=== PATIENT | male | born 1955 | race Caucasian/White ===

== ENCOUNTER → 2018-04-11 | Outpatient (CLI) | payer OTHER ==
--- NOTE | 2018-04-11 10:11 | CTL ---
EXAMINATION TYPE: CT Low Dose Lung DATE OF EXAM ORDERED: 04/11/2018 HISTORY: Personal history of tobacco use. Lung cancer screening CT DLP: [address] CTDI: 1.91 mGy Automated exposure control for dose reduction was used. SCREENING VISIT: Initial study COMPARISON: CT chest abdomen and pelvis March 21, 2013 TECHNIQUE: Low dose computed tomography scan was performed through the chest at 1 mm thick sections a nd reconstructed images in the coronal plane at [address] DIAGNOSTIC QUALITY: Satisfactory FINDINGS: LUNG NODULES: Present, detailed below: A 4 x 3 mm posterior right lower lobe nodule axial image [address] axial image 37 A 4 x 3 mm posterior superior left lower lobe nodule axial image 154 not clearly identified on prior. A 3 mm superior posterior right lower lobe nodule axial image 102. Additional scattered small nodules all measuring under 4 mm in size, for reference posterior lateral right upper lobe nodule axial image 59. LUNGS: COPD: Severity: Mild Fibrosis: Severity: Mild linear scarring lingula axial image 212 Lymph nodes: None Other findings: None BILATERAL PLEURAL SPACE: Effusion: None Calcification: None Thickening: None Pneumothorax: None HEART: Heart Size: Normal Coronary calcification: Mild to moderate Pericardial effusion: None OTHER FINDINGS: Upper abdomen: None Bony thorax: Mild to moderate multilevel spurring Supraclavicular region: Heterogeneous slightly more prominent lower pole left thyroid axial image 13 can't exclude new nodule at this level. Other: No additional suspicious finding identified. IMPRESSION: Scattered small nodules all measuring under 4 mm in size. FOLLOW UP CT CHEST RECOMMENDATION: Annual low-dose lung screening CT CT LUNG RAD: Lung-Rad 2S- Benign Appearance or Behavior Advised thyroid ultrasound to assess for possible new lower pole left thyroid nodule.
== END | disposition home or self-care (01) ==
LOC: RADCTMAIN 07:08
PROVIDERS: ATTEND Family Medicine
DX: Z12.2 Encounter for screening for malignant neoplasm of respiratory organs (principal); R91.8 Other nonspecific abnormal finding of lung field; Z87.891 Personal history of nicotine dependence

== ENCOUNTER 2018-04-18 07:13 | Day surgery (SDC) | payer OTHER ==
[2018-04-16 14:05] VITALS: BMI 22.8
[~2018-04-18 07:13] MED LIST: LACTATED RINGERS 1,000 ML IV SCH; LIDOCAINE 1% 20 ML VIAL (10MG/ML) FOR IV START INTRADERMA PRN
[2018-04-18 07:28] VITALS: RESP 18; TEMP 97.8
[2018-04-18] MEDS ORDERED: LACTATED RINGERS 1,000 ML IV ONE (07:35)
[2018-04-18 07:36] LABS: Glucose,Whole Blood 117 mg/dL (75-99)
[2018-04-18] MEDS ORDERED: PROPOFOL 10 MG/ML 20 ML VIAL IV ONE (07:59)
--- NOTE | 2018-04-18 08:23 | P.PCN ---
Date of Procedure: 04/18/18 Procedure(s) Performed: Brief history: Patient is a pleasant 62-year-old white male, scheduled for an elective upper endoscopy as well as colonoscopy as a part of evaluation of intermittent episodes of nausea vomiting and prior history of colon polyps. Procedure performed: Esophagogastroduodenoscopy with biopsy Colonoscopy Preoperative diagnosis: Intermittent episodes of nausea/vomiting of several months duration History of colon polyps Anesthesia: MAC Procedure: After informed consent was obtained from the patient was brought into the endoscopy unit and IV sedation was administered by anesthesia under continuous monitoring. Initially upper endoscopy was done. The Olympus GF 160 video endoscope was inserted inserted into the mouth and esophagus intubated without any difficulty and was gradually advanced into the stomach and duodenum and carefully examined. The bulb and second part of the duodenum appeared normal. Biopsy is were done from the duodenum to rule out celiac disease. The scope was then withdrawn into the stomach adequately insufflated with air and upon careful examination the antrum had minimal gastritis and biopsies were done from this area. The body, cardia and fundus appeared normal. The scope was then withdrawn into the esophagus. The GE junction was located at 40 cm to the incisors. It appeared regular with no erythema erosions or ulcerations. Rest of the esophagus appeared normal. Patient tolerated the procedure well. At this time the patient continued to remain sedation. Initial digital rectal examination was normal. Olympus CF 160 video colonoscope was then inserted into the rectum and gradually advanced to the cecum without any difficulty. Careful examination was performed as the scope was gradually being withdrawn. The prep was excellent. The cecum, ascending colon, transverse colon, descending colon, sigmoid colon and rectum appeared normal. scattered sigmoid diverticulosis. Retroflexion was performed in the rectum and no lesions were noted. Patient tolerated the procedure well. Impression: 1. Upper endoscopy revealed mild antral gastritis but no evidence of esophagitis or peptic ulcer disease wanda value] 2. Colonoscopy revealed scattered sigmoid diverticulosis but no evidence of colitis or colorectal neoplasia Recommendations: Findings of this examination were discussed with the patient as well as his family. He was advised to follow with the biopsy results. He can have a repeat surveillance colonoscopy in 5 years from now because of the prior history of colon polyps.
[2018-04-18 08:37] LABS: Glucose,Whole Blood 108 mg/dL (75-99)
[2018-04-18 09:25] VITALS: BP 131/76; PULSE 74
== END 2018-04-18 09:20 | disposition home or self-care (01) ==
LOC: ORWHC2ENDO 07:13
PROVIDERS: ATTEND Internal Medicine Gastroenterology
DX: K29.50 Unspecified chronic gastritis without bleeding (principal); K57.30 Diverticulosis of large intestine without perforation or abscess without bleeding; K21.0 Gastro-esophageal reflux disease with esophagitis; I10 Essential (primary) hypertension; E78.5 Hyperlipidemia, unspecified; J44.9 Chronic obstructive pulmonary disease, unspecified; E11.9 Type 2 diabetes mellitus without complications; F39 Unspecified mood [affective] disorder; Z86.010 Personal history of colon polyps; Z79.84 Long term (current) use of oral hypoglycemic drugs; Z79.51 Long term (current) use of inhaled steroids; Z79.899 Other long term (current) drug therapy
CPT/HCPCS: 88305; 45378; 43239; J2704

== ENCOUNTER → 2018-06-13 | Outpatient (CLI) | payer OTHER ==
--- NOTE | 2018-06-14 08:38 | US ---
EXAMINATION TYPE: US thyroid st tissue head/neck DATE OF EXAM: 06/13/2018 COMPARISON: CT dated 04/11/2018 CLINICAL HISTORY: E04.[address] GLAND SIZE: Right Lobe: 4.7 x 2.3 x 2.0 cm Overall Parenchyma: homogenous Left Lobe: 4.6 x 2.6 x 2.6 cm Overall Parenchyma: heterogeneous Isthmus Thickness: 0.4 cm NODULES RIGHT: # of nodules measured on right: 1 1. 0.4 X 0.3 x 0.3 cm hypoechoic solid nodule at the upper pole with well-defined margins; This nod ule is wider than tall and shows intranodular vascularity. Prior size: No prior LEFT: # of nodules measured on left: 1 1. 2.7 X 2.3 x 2.3 cm mixed nodule at the mid pole with well-defined margins; This nodule is wider than tall and shows intranodular vascularity. Prior size: Nodule seen on CT ISTHMUS: # of nodules measured in the isthmus: 0 Bilateral neck scanned, no evidence of lymphadenopathy. Nodules bilaterally, sub-centimeter on right, larger on left. IMPRESSION: 1. Complex partially cystic and partially solid left thyroid nodule measuring up to 2.7 cm for which fine-needle aspiration of the more solid components is recommended. 2. Subcentimeter (4 mm) right thyroid nodules incidentally seen.
== END | disposition home or self-care (01) ==
LOC: RADUSWWP 16:47
PROVIDERS: ATTEND Family Medicine
DX: E04.2 Nontoxic multinodular goiter (principal); Z88.8 Allergy status to other drugs, medicaments and biological substances
CPT/HCPCS: 76536

== ENCOUNTER → 2018-07-25 | Outpatient (CLI) | payer OTHER ==
--- NOTE | 2018-07-26 10:10 | NM ---
EXAMINATION TYPE: NM thyroid image w uptake DATE OF EXAM: 07/26/2018 COMPARISON: 06/13/2018 HISTORY: Abnormal ultrasound TECHNIQUE: Thyroid iodine uptake is calculated and images performed after the oral administration of 316 uCi 1-123 Capsule. FINDINGS: There is a large cold defect involving the mid and upper pole left thyroid. The 4 hour iod ine uptake is calculated at 2.9% (normal range 8-14%). The 24-hour iodine uptake is calculated at 3.0 % (normal range 15-35%). IMPRESSION: 1. Findings compatible with hypothyroidism. 2. Abnormal uptake involving the left lobe of the thyroid corresponds to the ultrasound thyroid nodul e compatible with a cold nodule. The tiny nodule seen within the right lobe is too small to correlate by thyroid imaging.
== END | disposition home or self-care (01) ==
LOC: RADNMMAIN 09:12
PROVIDERS: ATTEND Family Medicine
DX: E04.1 Nontoxic single thyroid nodule (principal); E03.9 Hypothyroidism, unspecified
CPT/HCPCS: 78014; A9516

== ENCOUNTER 2018-08-09 09:51 | Emergency (ER) | payer OTHER ==
[2018-08-09] MEDS ORDERED: SODIUM CHLORIDE 0.9% 500 ML IV STA (10:25)
--- NOTE | 2018-08-09 10:29 | ED ---
General Adult HPI - General Chief complaint: Neuro Symptoms/Deficit Stated complaint: POSS TIA Source: patient, family Mode of arrival: ambulatory Limitations: no limitations - History of Present Illness Initial comments: Dictation was produced using [employer] dictation software. please excuse any grammatical, word or spelling errors. Chief Complaint: 62-year-old male past medical history of COPD, diabetes, GI bleed, chronic nausea vomiting presents with word finding difficulty for 3 weeks. History of Present Illness: Patient is 62-year-old male presents with worsening word finding difficulty. Patient has been worked up outpatient. He had an x-ray performed approximately 3 weeks ago. There was incidental findings on x-ray that showed nodules on the thyroid. Patient underwent thyroid testing by primary care physician. Patient had normal thyroid labs outpatient. He was started on Synthroid for possible hypothyroidism. Patient was evaluated by the cnc operator yesterday and he was told that his thyroid labs are normal. He was scheduled for biopsy. Over the past 3 weeks patient has been word finding difficulty that has been worsening acutely. Patient denies any history of cancer. Patient is comfortable by who states that patient has been stuttering having difficulty finding words. Patient has denied any other neuro deficits. He denies any vision loss. The ROS documented in this emergency department record has been reviewed and confirmed by me. Those systems with pertinent positive or negative responses have been documented in the HPI. All other systems are other negative and/or noncontributory. - Related Data Home Medications Medication Instructions Recorded Confirmed Albuterol Inhaler [Ventolin 1 - 2 puff INHALATION RT-Q4H PRN 07/28/15 08/09/18 Inhaler] Ezetimibe [Zetia] 10 mg PO DAILY 07/28/15 08/09/18 Fluticasone/Salmeterol [Advair 1 puff INHALATION RT-BID 07/28/15 08/09/18 500-50 Diskus] Ibuprofen [Motrin] 800 mg PO Q8HR PRN 07/28/15 08/09/18 LORazepam [Ativan] 1 tab PO BID PRN 07/28/15 08/09/18 Lisinopril [Zestril] 5 mg PO DAILY 07/28/15 08/09/18 Omeprazole [PriLOSEC] 20 mg PO BID 07/28/15 08/09/18 Theophylline 24 Hour [Kelechi-24] 300 mg PO BID 07/28/15 08/09/18 Tiotropium Arverne [Spiriva] 1 puff INHALATION RT-DAILY 07/28/15 08/09/18 metFORMIN HCL [Glucophage] 500 mg PO DAILY 07/28/15 08/09/18 Albuterol Nebulized [Ventolin 2.5 mg INHALATION RT-Q6H PRN 04/16/18 08/09/18 Nebulized] Cyclobenzaprine [Flexeril] 5 - 10 mg PO HS PRN 04/16/18 08/09/18 Empagliflozin [Jardiance] 25 mg PO DAILY 04/16/18 08/09/18 Gabapentin [Neurontin] 300 mg PO TID 04/16/18 08/09/18 Tamsulosin [Flomax] 0.4 mg PO DAILY 04/16/18 08/09/18 sitaGLIPtin PHOSPHATE [Januvia] 100 mg PO DAILY 04/16/18 08/09/18 Levothyroxine Sodium [Synthroid] 50 mcg PO DAILY 08/09/18 08/09/18 Eqkl-Ngca-Lvs 6.25-5-10Mg/5Ml 5 - 10 ml PO Q6H PRN 08/09/18 08/09/18 [Phenergan VC with Codeine] Allergies Allergy/AdvReac Type Severity Reaction Status Date / Time Gtpvcvs-Nun-Yky Reductase AdvReac JOINT PAIN Verified 08/09/18 10:58 Inhibitor GAIN LAUNDRY PODS Allergy Rash/Hives Uncoded 04/16/18 13:32 Review of Systems ROS Statement: Those systems with pertinent positive or pertinent negative responses have been documented in the HPI. ROS Other: All systems not noted in ROS Statement are negative. Past Medical History Past Medical History: COPD, Diabetes Mellitus, GERD/Reflux, GI Bleed, Hyperlipidemia, Hypertension, Musculoskeletal Disorder, Osteoarthritis (OA) Additional Past Medical History / Comment(s): RT SHOULDER ARTHRITIS & SCIATICA @ TIMES. NT IN TOES OCC. STATES BRUISES EASILY. HX THROWING UP BLOOD, PT HAD BEEN DRINKING ALCOHOL. History of Any Multi-Drug Resistant Organisms: None Reported Additional Past Surgical History / Comment(s): EGD & COLONOSCOPY. DENTAL PROC Past Anesthesia/Blood Transfusion Reactions: Previous Problems w/ Anesthesia Additional Past Anesthesia/Blood Transfusion Reaction / Comment(s): "AWOKE THRASHING, PANICKY." Past Psychological History: Anxiety Smoking Status: Current every day smoker Past Alcohol Use History: None Reported Past Drug Use History: None Reported - Past Family History Sister(s) Family Medical History: Cancer Mother Family Medical History: Cancer, Congestive Heart Failure (CHF), COPD, Diabetes Mellitus Additional Family Medical History / Comment(s): BREAST CA- @ AGE 82-CHF Father Family Medical History: Dementia Additional Family Medical History / Comment(s): HAD A HEART CATH WITH STENT General Exam - General Exam Comments Initial Comments: PHYSICAL EXAM: General Impression: Alert and oriented x3, not in acute distress HEENT: Normocephalic atraumatic, extra-ocular movements intact, pupils equal and reactive to light bilaterally, mucous membranes moist. Cardiovascular: Heart regular rate and rhythm, S1&S2 audible, no murmurs, rubs or gallops Chest: Lungs clear to auscultation bilaterally, no rhonchi, no wheeze, no rales Abdomen: Bowel sounds present, abdomen soft, non-tender, non-distended, no organomegaly Musculoskeletal: Pulses present and equal in all extremities, no peripheral edema Motor: Power 5/5 bilaterally, no focal deficits noted Neurological: CN II-XII grossly intact, no focal motor or sensory deficits noted Skin: Intact with no visualized rashes Psych: Normal affect and mood Limitations: no limitations Course Vital Signs 08/09/18 09:53 Temperature 97.8 F Pulse Rate 75 Respiratory 20 Rate Blood Pressure 154/82 O2 Sat by Pulse 99 Oximetry Medical Decision Making - Medical Decision Making ED course: 72-year-old male with word finding difficulties 3 weeks. Patient has no other neuro deficits. Vital signs upon arrival are within acceptable limits. Patient has recent thyroid studies performed for cystic thyroid nodules. Patient is able to read and understands however cannot find the words to express what is reading. Patient has stuttering speech which significant other reports is abnormal over the past 3 weeks. She is not a candidate for TPA at this time given that his symptoms have been ongoing for 3 weeks.Laboratory evaluation is obtained. CBC unremarkable, coag panel unremarkable. Metabolic panel shows mild Acidosis. Renal markers are within normal limits. Glucose is 100. Abdominal labs are unremarkable. Urinalysis shows 2+ ketones and 4+ glucose. Given clinical presentation there is strong suspicion of intracranial process of the left hemisphere. Computed tomography scan of the brain was obtained showing large area of vasogenic edema involving the left temporal parietal lobes with brown 4.1 cm mass. There is mild 5 mm rightward midline shift. Findings were discussed in detail with patient and patient's fiance. They requested to be transferred to [facility] for further intervention. Chest x-ray shows no acute processes. Patient to be transferred to [facility]. stable at this time. Repeat neural evaluation does not show any changes. EKG interpretation: Ventricular rate 68 on a normal sinus rhythm,. Interval 140 , QRS 104, QTC 425. No [place] prolongation, no QTC prolongation, no ST or T-wave changes noted. Overall, this EKG is unremarkable - Lab Data Result diagrams: 08/09/18 10:30 08/09/18 10:30 Lab Results 08/09/18 08/09/18 08/09/18 Range/Units 10:30 10:30 10:30 WBC 8.3 (3.8-10.6) k/uL RBC 5.76 (4.30-5.90) m/uL Hgb 16.3 (13.0-17.5) gm/dL Hct 49.3 (39.0-53.0) % MCV 85.6 (80.0-100.0) fL MCH 28.3 (25.0-35.0) pg MCHC 33.0 (31.0-37.0) g/dL RDW 14.8 (11.5-15.5) % Plt Count 309 (150-450) k/uL Neutrophils % 63 % Lymphocytes % 27 % Monocytes % 6 % Eosinophils % 1 % Basophils % 1 % Neutrophils # 5.2 (1.3-7.7) k/uL Lymphocytes # 2.3 (1.0-4.8) k/uL Monocytes # 0.5 (0-1.0) k/uL Eosinophils # 0.1 (0-0.7) k/uL Basophils # 0.0 (0-0.2) k/uL PT (9.0-12.0) sec INR (<1.2) APTT (22.0-30.0) sec Sodium 141 (137-145) mmol/L Potassium 4.1 (3.5-5.1) mmol/L Chloride 108 H (98-107) mmol/L Carbon Dioxide 21 L (22-30) mmol/L Anion Gap 12 mmol/L BUN 16 (9-20) mg/dL Creatinine 0.64 L (0.66-1.25) mg/dL Est GFR (CKD-EPI)AfAm >90 (>60 ml/min/1.73 sqM) Est GFR (CKD-EPI)NonAf >90 (>60 ml/min/1.73 sqM) Glucose 100 H (74-99) mg/dL POC Glucose (mg/dL) (75-99) mg/dL POC Glu Film Painter ID Calcium 9.8 (8.4-10.2) mg/dL Magnesium (1.6-2.3) mg/dL Total Bilirubin 0.9 (0.2-1.3) mg/dL AST 16 L (17-59) U/L ALT 25 (21-72) U/L Alkaline Phosphatase 62 (38-126) U/L Total Creatine Kinase 97 (55-170) U/L CK-MB (CK-2) 0.9 (0.0-2.4) ng/mL CK-MB (CK-2) Rel Index 0.9 Troponin I <0.012 (0.000-0.034) ng/mL Total Protein 7.0 (6.3-8.2) g/dL Albumin 4.4 (3.5-5.0) g/dL Urine Color Urine Appearance (Clear) Urine pH (5.0-8.0) Ur Specific [place] (1.001-1.035) Urine Protein (Negative) Urine Glucose (UA) (Negative) Urine Ketones (Negative) Urine Blood (Negative) Urine Nitrite (Negative) Urine Bilirubin (Negative) Urine Urobilinogen (<2.0) mg/dL Ur Leukocyte Esterase (Negative) 08/09/18 08/09/18 08/09/18 Range/Units 10:30 10:30 10:30 WBC (3.8-10.6) k/uL RBC (4.30-5.90) m/uL Hgb (13.0-17.5) gm/dL Hct (39.0-53.0) % MCV (80.0-100.0) fL MCH (25.0-35.0) pg MCHC (31.0-37.0) g/dL RDW (11.5-15.5) % Plt Count (150-450) k/uL Neutrophils % % Lymphocytes % % Monocytes % % Eosinophils % % Basophils % % Neutrophils # (1.3-7.7) k/uL Lymphocytes # (1.0-4.8) k/uL Monocytes # (0-1.0) k/uL Eosinophils # (0-0.7) k/uL Basophils # (0-0.2) k/uL PT 9.9 (9.0-12.0) sec INR 1.0 (<1.2) APTT 22.9 (22.0-30.0) sec Sodium (137-145) mmol/L Potassium (3.5-5.1) mmol/L Chloride (98-107) mmol/L Carbon Dioxide (22-30) mmol/L Anion Gap mmol/L BUN (9-20) mg/dL Creatinine (0.66-1.25) mg/dL Est GFR (CKD-EPI)AfAm (>60 ml/min/1.73 sqM) Est GFR (CKD-EPI)NonAf (>60 ml/min/1.73 sqM) Glucose (74-99) mg/dL POC Glucose (mg/dL) (75-99) mg/dL POC Glu Film Painter ID Calcium (8.4-10.2) mg/dL Magnesium 1.7 (1.6-2.3) mg/dL Total Bilirubin (0.2-1.3) mg/dL AST (17-59) U/L ALT (21-72) U/L Alkaline Phosphatase (38-126) U/L Total Creatine Kinase (55-170) U/L CK-MB (CK-2) (0.0-2.4) ng/mL CK-MB (CK-2) Rel Index Troponin I (0.000-0.034) ng/mL Total Protein (6.3-8.2) g/dL Albumin (3.5-5.0) g/dL Urine Color Yellow Urine Appearance Clear (Clear) Urine pH 5.5 (5.0-8.0) Ur Specific [place] 1.027 (1.001-1.035) Urine Protein Negative (Negative) Urine Glucose (UA) 4+ H (Negative) Urine Ketones 2+ H (Negative) Urine Blood Negative (Negative) Urine Nitrite Negative (Negative) Urine Bilirubin Negative (Negative) Urine Urobilinogen <2.0 (<2.0) mg/dL Ur Leukocyte Esterase Negative (Negative) 08/09/18 Range/Units 10:33 WBC (3.8-10.6) k/uL RBC (4.30-5.90) m/uL Hgb (13.0-17.5) gm/dL Hct (39.0-53.0) % MCV (80.0-100.0) fL MCH (25.0-35.0) pg MCHC (31.0-37.0) g/dL RDW (11.5-15.5) % Plt Count (150-450) k/uL Neutrophils % % Lymphocytes % % Monocytes % % Eosinophils % % Basophils % % Neutrophils # (1.3-7.7) k/uL Lymphocytes # (1.0-4.8) k/uL Monocytes # (0-1.0) k/uL Eosinophils # (0-0.7) k/uL Basophils # (0-0.2) k/uL PT (9.0-12.0) sec INR (<1.2) APTT (22.0-30.0) sec Sodium (137-145) mmol/L Potassium (3.5-5.1) mmol/L Chloride (98-107) mmol/L Carbon Dioxide (22-30) mmol/L Anion Gap mmol/L BUN (9-20) mg/dL Creatinine (0.66-1.25) mg/dL Est GFR (CKD-EPI)AfAm (>60 ml/min/1.73 sqM) Est GFR (CKD-EPI)NonAf (>60 ml/min/1.73 sqM) Glucose (74-99) mg/dL POC Glucose (mg/dL) 101 H (75-99) mg/dL POC Glu Film Painter ID PavanjaceSarita huggins Calcium (8.4-10.2) mg/dL Magnesium (1.6-2.3) mg/dL Total Bilirubin (0.2-1.3) mg/dL AST (17-59) U/L ALT (21-72) U/L Alkaline Phosphatase (38-126) U/L Total Creatine Kinase (55-170) U/L CK-MB (CK-2) (0.0-2.4) ng/mL CK-MB (CK-2) Rel Index Troponin I (0.000-0.034) ng/mL Total Protein (6.3-8.2) g/dL Albumin (3.5-5.0) g/dL Urine Color Urine Appearance (Clear) Urine pH (5.0-8.0) Ur Specific [place] (1.001-1.035) Urine Protein (Negative) Urine Glucose (UA) (Negative) Urine Ketones (Negative) Urine Blood (Negative) Urine Nitrite (Negative) Urine Bilirubin (Negative) Urine Urobilinogen (<2.0) mg/dL Ur Leukocyte Esterase (Negative) Disposition Clinical Impression: Brain tumor Disposition: OTHER INSTITUTION NOT DEFINED Condition: Fair Referrals: Smith Cheatham III, MD [Primary Care Provider] - 1-2 days - Out of Hospital Transfer - Req. Specs Out of Hospital Transfer - Requested Specifics: Other Emergency Center ([facility]
[2018-08-09 10:35] LABS: Glucose,Whole Blood 101 mg/dL (75-99)
[2018-08-09 10:45] LABS: Basophils % (A) 1 %; Eosinophils # (A) 0.1 k/uL (0-0.7); Eosinophils % (A) 1 %; HCT 49.3 % (39.0-53.0); HGB 16.3 gm/dL (13.0-17.5); Lymphocytes # (A) 2.3 k/uL (1.0-4.8); Lymphocytes % (A) 27 %; MCH 28.3 pg (25.0-35.0); MCV 85.6 fL (80.0-100.0); Mean Platelet Volume 7.3; Monocytes # (A) 0.5 k/uL (0-1.0); Monocytes % (A) 6 %; Neutrophils # (A) 5.2 k/uL (1.3-7.7); Neutrophils % (A) 63 %; Platelet Count 309 k/uL (150-450); RBC 5.76 m/uL (4.30-5.90); RDW 14.8 % (11.5-15.5); WBC 8.3 k/uL (3.8-10.6)
[2018-08-09 10:56] LABS: ALT 25 U/L (21-72); AST 16 U/L (17-59); Albumin 4.4 g/dL (3.5-5.0); Alkaline Phosphatase 62 U/L (38-126); Anion Gap 12 mmol/L; Blood Urea Nitrogen 16 mg/dL (9-20); Calcium 9.8 mg/dL (8.4-10.2); Carbon Dioxide 21 mmol/L (22-30); Chloride 108 mmol/L (98-107); Glucose 100 mg/dL (74-99); Potassium 4.1 mmol/L (3.5-5.1); Sodium 141 mmol/L (137-145); Total Bilirubin 0.9 mg/dL (0.2-1.3)
[2018-08-09 11:03] LABS: Appearance,Urine Clear (Clear); Bilirubin,Urine Negative (Negative); Blood,Urine Negative (Negative); Color,Urine Yellow; Glucose,Urine (UA) 4+ (Negative); Leukocyte Esterase,Urine Negative (Negative); Nitrite,Urine Negative (Negative); PH, Urine 5.5 (5.0-8.0); Protein,Urine Negative (Negative); Specific Gravity,Urine 1.027 (1.001-1.035); Urobilinogen,Urine <2.0 mg/dL (<2.0)
[2018-08-09 11:07] LABS: Partial Thromboplastin Time 22.9 sec (22.0-30.0); Prothrombin Time 9.9 sec (9.0-12.0)
[2018-08-09 11:09] LABS: Creatine Kinase 97 U/L (55-170)
[2018-08-09 11:22] LABS: Creatine Kinase MB 0.9 ng/mL (0.0-2.4); Troponin I <0.012 ng/mL (0.000-0.034)
[2018-08-09 11:31] LABS: Ketones,Urine 2+ (Negative)
--- NOTE | 2018-08-09 11:48 | XR ---
EXAMINATION TYPE: XR chest 2V DATE OF EXAM: 08/09/2018 COMPARISON: CT chest abdomen and pelvis March 21, 2013 HISTORY: Altered mental status and weakness. TECHNIQUE: Frontal and lateral views of the chest are obtained. FINDINGS: There is no focal air space opacity, pleural effusion, or pneumothorax seen. The cardiac silhouette size is within normal limits. The osseous structures are demineralized. Mild to moderate multilevel spurring in thoracic spine is present. IMPRESSION: No acute cardiopulmonary process.
--- NOTE | 2018-08-09 11:53 | CT ---
EXAMINATION TYPE: CT brain wo con DATE OF EXAM: 08/09/2018 COMPARISON: 07/20/2015 HISTORY: 62-year-old male neurologic deficits, weakness, slurred speech TECHNIQUE: Examination was done in axial plane without intravenous contrast. Coronal and sagittal r econstructions performed. CT DLP: 1177 mGycm Automated exposure control for dose reduction was used. FINDINGS: There is extensive hypodensity involving the left temporoparietal junction with suggestion of an unde rlying rounded area measuring up to 3.4 cm craniocaudal by 4.1 cm AP by 3.7 cm wide. Surrounding vaso genic edema with slight asymmetric flattening of the left lateral ventricle and slight 5 mm of rightw luis midline shift. No convincing findings of acute intracranial hemorrhage. No herniation or hydrocephalus. No extra-axi al fluid collection. Nonspecific 5 mm hypodensity in the subcortical region of the right frontal lobe show CSF attenuation and could represent a prominent perivascular space. Mild mucosal thickening posterior right ethmoid air cells and anterior left ethmoid air cells. Patien t's gaze is divergent suggesting underlying strabismus. Mastoid air cells well pneumatized. IMPRESSION: 1. Large area of vasogenic edema involving the left temporoparietal lobes with a possible underlying rounded 4.1 cm mass. 2. Mass effect with slight asymmetric flattening of the left lateral ventricle and 5 mm of rightward midline shift. 3. No convincing findings of acute intracranial hemorrhage. 4. Further evaluation for any risk factors of primary or secondary malignancy and contrast-enhanced M RI recommended. Critical findings called to Dr. Munoz in the ER at 11:50 AM.
[2018-08-09] MEDS ORDERED: DEXAMETHASONE SOD PHOSPHATE 10 MG/ML 1 ML VIAL IV STA (12:12)
[2018-08-09] MEDS ORDERED: LORazepam 1 MG TAB PO STA (12:39)
[2018-08-09] MEDS ORDERED: NICOTINE 21MG/24HR PATCH TRANSDERM STA (12:39)
[2018-08-09 12:49] VITALS: BP 156/97; PULSE 70; RESP 18; TEMP 97
== END 2018-08-09 13:27 | disposition other institution (70) ==
LOC: EC 09:51
DX: D49.6 Neoplasm of unspecified behavior of brain (principal); R47.89 Other speech disturbances; E87.2 Acidosis; J44.9 Chronic obstructive pulmonary disease, unspecified; E11.9 Type 2 diabetes mellitus without complications; K21.9 Gastro-esophageal reflux disease without esophagitis; E78.5 Hyperlipidemia, unspecified; I10 Essential (primary) hypertension; F41.9 Anxiety disorder, unspecified; F17.200 Nicotine dependence, unspecified, uncomplicated; Z79.51 Long term (current) use of inhaled steroids; Z79.84 Long term (current) use of oral hypoglycemic drugs; Z79.899 Other long term (current) drug therapy; Z88.8 Allergy status to other drugs, medicaments and biological substances; Z91.048 Other nonmedicinal substance allergy status
CPT/HCPCS: 36415; 70450; 71046; 80053; 81003; 82550; 82553; 83735; 84443; 84484; 85025; 85610; 85730; 93005; 96374; 99285

== ENCOUNTER → 2018-11-29 | Outpatient (CLI) | payer OTHER ==
--- NOTE | 2018-11-29 16:00 | MR ---
EXAMINATION TYPE: MR brain wo/w con DATE OF EXAM: 11/29/2018 COMPARISON: 08/28/2018 MRI brain [facility] Presurgical imaging 08/27/2018. 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 TECHNIQUE: Multiplanar, multiecho imaging on a 3.0 Marva magnet is performed through the brain. Stud y is performed within 24 hours of arrival to the hospital. The craniovertebral junction is normal. The pituitary is normal. Diffusion-weighted imaging is performed. No suspicious abnormality to suggest acute ischemic change is evident. Mild periventricular white matter changes are present. There is white matter change throughout the le ft temporal and trilobar region. This could be related to postradiation changes or vasogenic edema. T his may has some local mass effect on the adjacent sulci suggesting vasogenic edema. Remaining ventri cles and sulci appear appropriate for the patient age. Postsurgical changes noted in the proximal lateral temporal lobe. This has peripheral irregular enhan cement. This appears to have thicker enhancement and is more lobular than previous. This area current ly measures 3.9 AP by 2.3 cm transverse by 3.8 cm craniocaudal dimension. Series 602, image 33, serie s 603, image 22. Previous measurements appear to be 4.8 x 2.1 x 3.0 cm. IMPRESSIONS: 1. Postsurgical changes in the left proximal temporal lobe. The area of enhancement appears thickened and somewhat more nodular than the immediate postsurgical enhancement of 08/28/2018. Additionally, wh ite matter changes adjacent suggest some vasogenic edema suggesting the possibility of some recurrenc e along the margins. 2. Portion of the left temporal parietal white matter change could also be at she related to some pos tradiation changes.
== END | disposition home or self-care (01) ==
LOC: RADMRIMAIN 14:45
PROVIDERS: ATTEND Radiology Radiation Oncology
DX: C71.2 Malignant neoplasm of temporal lobe (principal); R90.89 Other abnormal findings on diagnostic imaging of central nervous system; F17.210 Nicotine dependence, cigarettes, uncomplicated; Z98.890 Other specified postprocedural states
CPT/HCPCS: 70553; A9585

== ENCOUNTER → 2019-02-05 | Outpatient (CLI) | payer OTHER ==
[2019-02-05 08:48] LABS: Blood Urea Nitrogen 20 mg/dL (9-20)
--- NOTE | 2019-02-05 11:38 | MR ---
EXAMINATION TYPE: MR brain wo/w con DATE OF EXAM: 02/05/2019 COMPARISON: Prior MR brain 11/29/2018 HISTORY: Malignant neoplasm of temporal lobe TECHNIQUE: Multiplanar, multisequence images of the brain and brainstem is performed without and with IV contras t, utilizing 6.5 mL intravenous Gadavist . FINDINGS: Diffusion weighted images demonstrate no evidence of a recent infarct or other diffusion ab normality. There is no extra-axial fluid collection.S light interval change, progression and white m atter signal abnormality, vasogenic edema changes within the left temporal lobe versus scoliosis agai n noted and extend into the left occipital and parietal regions. The ventricular system and cisterna l spaces are stable in size and appearance. The patient is post left craniotomy. Midline structures demonstrate normal morphology. The craniocervical junction appears within normal limits. Post contrast images demonstrate similar abnormal enhancement. The area shows a similar size , there may be minimal progression in dimension although there are differences in technique compared to prior exam. The dural venous sinuses appear patent. The visualized sinuses are clear and the globe s are intact. IMPRESSION: Findings compatible with patient's history as described.
== END | disposition home or self-care (01) ==
LOC: RADMRIMAIN 08:06
PROVIDERS: ATTEND Radiology Radiation Oncology
DX: C71.2 Malignant neoplasm of temporal lobe (principal); F17.210 Nicotine dependence, cigarettes, uncomplicated; Z92.3 Personal history of irradiation
CPT/HCPCS: 82565; 84520; 70553; 36415; A9585

== ENCOUNTER → 2019-05-16 | Outpatient (CLI) | payer OTHER ==
--- NOTE | 2019-05-16 13:34 | MR ---
EXAMINATION TYPE: MR brain wo/w con DATE OF EXAM: 05/16/2019 COMPARISON: 02/05/2019 HISTORY: 63-year-old male malignant neoplasm temporal lobe TECHNIQUE: Multiplanar, multisequence images of the brain and brainstem were acquired before and aft er administration of 6 mL IV Gadavist. Diffusion weighted imaging is performed. FINDINGS: Redemonstrated left temporal craniotomy flap with underlying resection cavity. Redemonstration of extensive irregular and serpiginous areas of enhancement within the posterior left temporal lobe. The overall extent of enhancement measures up to 2.4 cm wide by 4.3 cm AP by 3.1 cm c raniocaudal. This is in comparison to 2.2 x 3.9 x 2.9 cm. Some of the internal nonenhancing component has diminish ed in size and greater degree of internal areas of enhancement are demonstrated. Extensive increased T2 white matter signal change extending throughout the temporal and parietal lobe s and posterior left insular lobe, similar to prior exam. No new areas of enhancement. Dural venous sinuses are patent. No midline shift or effacement of basal subarachnoid cisterns. No hydrocephalus. DWI sequence shows no evidence for recent infarct. For nasal septal deviation. Mild mucosal thickening maxillary sinuses and ethmoid air cells. IMPRESSION: 1. Left temporal craniotomy flap with underlying resection cavity. 2. Extensive irregular and serpiginous areas of enhancement in the posterior left temporal lobe, post surgical site. The overall extent of enhancement measures 2.4 x 4.3 x 3.1 cm (2.2 x 2.9 x 2.9 cm, pre viously). Some internal nonenhancing component has diminished in size in greater degrees degree of in ternal enhancement is demonstrated. Residual neoplasm and radiation necrosis are both in the differen tial at this time. Ongoing follow-up recommended. 3. Stable extensive bright white matter change throughout the left temporal, parietal, and posterior left insular lobes.
== END | disposition home or self-care (01) ==
LOC: RADMRIMAIN 11:10
PROVIDERS: ATTEND Radiology Radiation Oncology
DX: C71.2 Malignant neoplasm of temporal lobe (principal); R90.82 White matter disease, unspecified; F17.210 Nicotine dependence, cigarettes, uncomplicated; Z92.3 Personal history of irradiation
CPT/HCPCS: 70553; A9585

== ENCOUNTER → 2019-08-15 | Outpatient (CLI) | payer OTHER, BC ==
--- NOTE | 2019-08-15 13:00 | MR ---
EXAMINATION TYPE: MR brain wo/w con DATE OF EXAM: 08/15/2019 12:00 PM COMPARISON: 05/16/2019 HISTORY: Malignant neoplasm of temporal lobe, 3 mo follow-up CONTRAST: Patient received 6 mL intravenous Gadavist gadolinium contrast. Multiplanar and multispin-echo imaging of the brain was performed . Pre and post contrast enhanced i mages are obtained. Again noted is a left temporal craniotomy flap with underlying resection cavity. There is again noted to be irregular and serpiginous areas of enhancement within the posterior left temporal lobe measuri ng currently 3.4 x 1.6 x 2.5 cm versus 3.9 x 2.2 x 2.9 cm previously. There is extensive increased T2 signal white matter changes noted throughout the temporal and parietal lobes as well as the posterio r left insular lobe similar to prior study. No new areas of pathologic enhancement are identified. The ventricles, basal cisterns and sulci overlying the cerebral convexities are mildly enlarged. There is evidence of mild periventricular white matter ischemic demyelination. Remote deep white matter insults are also noted. No acute edema is seen on diffusion weighted imaging. Acute intracranial hemorrhage or extra-axial collection is not evident. The paranasal sinuses and mastoid air cells are well-aerated. IMPRESSION: 1. Left temporal lobe craniotomy with underlying resection cavity redemonstrated. Persistent irregula r and serpiginous area of enhancement somewhat smaller than on the prior study although does persist. No new areas of enhancement seen. T2 white matter changes persist as noted.
== END | disposition home or self-care (01) ==
LOC: RADMRIMAIN 11:03
PROVIDERS: ATTEND Radiology Radiation Oncology
DX: R90.89 Other abnormal findings on diagnostic imaging of central nervous system (principal); Z98.890 Other specified postprocedural states; Z92.3 Personal history of irradiation; F17.210 Nicotine dependence, cigarettes, uncomplicated
CPT/HCPCS: 70553; A9585

== ENCOUNTER → 2019-08-17 | Outpatient (CLI) | payer OTHER, BC ==
[2019-08-17 16:19] LABS: African American GFR (CKD) 105.7 (60.0-200.0); Anion Gap 6.7 mmol/L (4.00-12.00); BUN/Creat Ratio 24.44 Ratio (12.00-20.00); Calcium 9.9 mg/dL (8.7-10.3); Carbon Dioxide 28.3 mmol/L (21.6-31.8); Chol/HDL Ratio 3.49; LDL Cholesterol,Calculated 129.6 mg/dL (0.0-131.0); Potassium 5.3 mmol/L (3.5-5.5); VLDL Calculation 12.4 mg/dL (5.00-40.00)
[2019-08-17 16:27] LABS: T4, Free (Free Thyroxine) 1.2 ng/dL (0.80-1.80)
[2019-08-17 17:51] LABS: Hemoglobin A1C 6.5 % (4.0-6.0)
== END | disposition home or self-care (01) ==
LOC: LABWHC1 09:41
PROVIDERS: ATTEND Internal Medicine
DX: E11.65 Type 2 diabetes mellitus with hyperglycemia (principal); E03.9 Hypothyroidism, unspecified
CPT/HCPCS: 36415; 80048; 80061; 82043; 82570; 83036; 84439; 84443

== ENCOUNTER → 2019-11-12 | Outpatient (CLI) | payer OTHER, BC ==
--- NOTE | 2019-11-12 17:18 | MR ---
EXAMINATION TYPE: MR brain wo/w con DATE OF EXAM: 11/12/2019 COMPARISON: Prior MR brain 08/15/2019 HISTORY: F/U Glioblastoma TECHNIQUE: Multiplanar, multisequence images of the brain and brainstem is performed without and with IV contras t, utilizing 6 mL intravenous Gadavist . FINDINGS: Diffusion weighted images demonstrate no evidence of a recent infarct or other diffusion ab normality. There is no extra-axial fluid collection or significant interval change in diffuse abnorm al white matter signal abnormality as on prior exam involving the left temporal region. The confluent periventricular hyperintensity and inversion recovery T2-weighted sequences is again seen about the ventricles, the left parietal region shows an increase in in distribution of the white matter signal however the medial aspect of the temporal lobe there is some decrease in the white matter signal. Th e ventricular system and cisternal spaces are stable in size and appearance. The brain volume is age appropriate. Midline structures demonstrate normal morphology. The craniocervical junction appears within normal limits. Post contrast images show serpiginous peripheral enhancement in the left temporal region as o n prior exam, AP dimension is approximately 2.7 cm as compared to prior exam when it was 4.4 cm, the peripheral enhancement is thinner. The dural venous sinuses appear patent. The visualized sinuses are remarkable for minimal inflammatory change in the maxillary sinus on the right, there is some inflam matory change in the mastoid air cells on the left, and the globes are intact. Postop changes are aga in noted to the calvarium. IMPRESSION: Slight interval changes as described.
== END | disposition home or self-care (01) ==
LOC: RADMRIMAIN 15:38
PROVIDERS: ATTEND Radiology Radiation Oncology
DX: C71.2 Malignant neoplasm of temporal lobe (principal); F17.210 Nicotine dependence, cigarettes, uncomplicated; Z92.3 Personal history of irradiation
CPT/HCPCS: 70553

== ENCOUNTER → 2020-02-05 | Outpatient (CLI) | payer OTHER ==
--- NOTE | 2020-02-05 22:26 | MR ---
EXAMINATION TYPE: MR brain wo/w con DATE OF EXAM: 02/05/2020 COMPARISON: Prior brain MR 11/12/2019 HISTORY: Malignant neoplasm of temporal lobe TECHNIQUE: Multiplanar, multisequence images of the brain and brainstem is performed without and with IV contras t, utilizing 6 mL intravenous Gadavist . FINDINGS: Diffusion weighted images demonstrate no evidence of a recent infarct or other diffusion ab normality. There is no extra-axial fluid collection or significant interval change white matter sign al abnormality. The ventricular system and cisternal spaces are stable in size and appearance. The brain volume is age appropriate. Ex vacuo phenomenon present along the left lateral ventricle. Midline structures demonstrate normal morphology. The craniocervical junction appears within normal limits. Post contrast images demonstrate no significant change in abnormal enhancement. The dural ve nous sinuses appear patent. The globes are intact. Telemetry changes are present in the mastoid air c ells as on prior. Mild inflammatory change in the maxillary sinuses, ethmoid air cells IMPRESSION: Findings are similar to prior exam.
== END | disposition home or self-care (01) ==
LOC: RADMRIMAIN 15:42
PROVIDERS: ATTEND Radiology Radiation Oncology
DX: C71.2 Malignant neoplasm of temporal lobe (principal); F17.210 Nicotine dependence, cigarettes, uncomplicated; Z92.3 Personal history of irradiation
CPT/HCPCS: 70553; A9585

== ENCOUNTER → 2020-04-29 | Outpatient (CLI) | payer OTHER ==
--- NOTE | 2020-04-30 09:19 | MR ---
EXAMINATION TYPE: MR brain wo/w con DATE OF EXAM: 04/29/2020 COMPARISON: 02/05/2020, 08/15/2019 HISTORY: F/U Malignant neoplasm of temporal lobe TECHNIQUE: Multiplanar, multisequence images of the brain and brainstem is performed without and with IV contras t, utilizing 6 mL intravenous Gadavist . FINDINGS: Again noted is a left temporal craniotomy flap with underlying resection cavity. There is a gain noted to be irregular and serpiginous areas of enhancement within the posterior left temporal lo be measuring currently 2.6 x 2 cm. Area, this is significantly reduced from exam of 08/15/2019. There is extensive increased T2 signal white matter changes noted throughout the temporal and parietal lobe s as well as the posterior left insular lobe similar to prior study. No new areas of pathologic enhan cement are identified. Craniocervical junction is maintained. Generalized degenerative changes seen and there is nonspecific changes in the white matter most typical remote myocardial vascular ischemia. Craniocervical junction is maintained. Changes of chronic mastoiditis and sinusitis noted. No midline shift or mass effect. There is a linea r area of enhancement involving the left frontal lobe axial image 16 and coronal image 32. There is r etrospectively stable from the prior exam and may represent a small venous angioma. Also noted on the exam of 08/15/2019. IMPRESSION: 1. Postsurgical change is stable. Residual area of enhancement is unchanged in size relative the prev ious exam measuring approximately 2.6 x 2 cm. However it is markedly improved relative to the exam of 08/15/2019. 2. Linear area of enhancement involving the left frontal lobe is retrospectively stable dating back t o multiple exams and may represent tiny venous angioma. 3. Chronic sinusitis and mastoiditis.
== END | disposition home or self-care (01) ==
LOC: RADMRIMAIN 04:45
PROVIDERS: ATTEND Radiology Radiation Oncology
DX: C71.2 Malignant neoplasm of temporal lobe (principal); Z98.890 Other specified postprocedural states; Z92.3 Personal history of irradiation; F17.210 Nicotine dependence, cigarettes, uncomplicated
CPT/HCPCS: 70553; A9585

== ENCOUNTER → 2020-08-05 | Outpatient (CLI) | payer OTHER ==
--- NOTE | 2020-08-05 17:45 | MR ---
EXAMINATION TYPE: MR brain wo/w con DATE OF EXAM: 08/05/2020 COMPARISON: MRI brain April 29, 2020 and older studies. HISTORY: Glioblastoma f/u TECHNIQUE: Multiplanar, multisequence images of the brain and brainstem is performed without and with IV contras t, utilizing 5.5 mL intravenous Gadavist . FINDINGS: Diffusion weighted images demonstrate no evidence of a recent infarct or other diffusion ab normality. There is persistent artifact from left temporal surgical change or craniotomy. Persistent vasogenic edema throughout the left temporal parietal region with ex vacuo dilatation of the left tem poral horn. Persistent region of abnormal enhancement lateral left temporal region on axial image 26 of slightly irregular borders with more nodular central enhancement corresponding to coronal image 52 measuring roughly 1.2 x 1.2 x 1.4 cm. Posterior component of cavity with rim enhancement axial image 25 redemonstrated. Overall no significant change from most recent MRI and continued improvement from older studies. Patchy fluid signal left mastoid air cells remains present presumed postsurgical. Midline structures redemonstrate normal morphology. The craniocervical junction appears within norm al limits. Persistent background mild diffuse cerebral atrophy and chronic small vessel ischemic grubbs ges. Post contrast images demonstrate no new areas of suspicious enhancement. The dural venous sinus es appear patent. The visualized sinuses are clear and the globes are intact. IMPRESSION: Stable postsurgical changes and area of irregular enhancement at site of surgery from mos t recent MRI improved from older studies suggesting stable neoplasm without interval progression.
== END | disposition home or self-care (01) ==
LOC: RADMRIMAIN 16:25
PROVIDERS: ATTEND Radiology Radiation Oncology
DX: C71.2 Malignant neoplasm of temporal lobe (principal); Z98.890 Other specified postprocedural states; Z92.3 Personal history of irradiation; F17.210 Nicotine dependence, cigarettes, uncomplicated
CPT/HCPCS: 70553; A9585

== ENCOUNTER → 2020-08-05 | Outpatient (CLI) | payer OTHER | END | disposition home or self-care (01) | LOC: RADMRIMAIN 08:59 | PROVIDERS: ATTEND Radiology Radiation Oncology | DX: Z53.9 Procedure and treatment not carried out, unspecified reason (principal) ==

== ENCOUNTER → 2020-08-10 | Outpatient (CLI) | payer OTHER ==
--- NOTE | 2020-08-11 08:10 | US ---
EXAMINATION TYPE: US thyroid st tissue head/neck DATE OF EXAM: 08/10/2020 COMPARISON: 06/13/2018 CLINICAL HISTORY: 64-year-old male E04.2 Nontoxic multinodular goiter. TECHNIQUE: Multiple sonographic images of the thyroid gland are obtained. FINDINGS: GLAND SIZE: Right Lobe: 4.3 x 2.2 x 1.6 cm Overall Parenchyma: homogenous Left Lobe: 5.2 x 3.8 x 3.3 cm Overall Parenchyma: Mixed Isthmus Thickness: .3 cm NODULES RIGHT: # of nodules measured on right: Couple sub centimeter, one of which is measured: 1. .4 X .3 x .3 cm hypoechoic solid nodule at the pole with well-defined margins; . This nodule is wider than tall and shows intranodular vascularity. Prior size: .4 x .3 x .3 cm LEFT: # of nodules measured on left: 1 1. 4.2 X 3.0 x 3.2 cm large solid cystic nodule at the mid pole with well-defined margins . This n odule is wider than tall and shows no intranodular vascularity. The inlying solid nodule measures 2.0 cm. Prior size: 2.7 x 2.3 x 2.3 cm and the nodule previously measured 7 mm. ISTHMUS: # of nodules measured in the isthmus: 0 Bilateral neck scanned, no evidence of lymphadenopathy. IMPRESSION: Large 4.2 cm mixed solid cystic nodule of the left thyroid lobe has increased from 2.7 cm, previously . The solid component within has also increased in size at 2.0 cm versus 7 mm, previously. FNA can be considered.
== END | disposition home or self-care (01) ==
LOC: RADUSWWP 16:14
PROVIDERS: ATTEND Family Medicine
DX: E04.1 Nontoxic single thyroid nodule (principal)
CPT/HCPCS: 76536

== ENCOUNTER → 2020-08-21 | Outpatient (CLI) | payer OTHER ==
--- NOTE | 2020-08-21 22:28 | MR ---
EXAMINATION TYPE: MR lumbar spine wo con DATE OF EXAM: 08/21/2020 COMPARISON: None HISTORY: Rt dropfoot, right hip pain. Hx Glioblastoma. CONTRAST: 0 mL intravenous Gadavist. TECHNIQUE: Multiplanar, multisequence images of the lumbar spine were acquired. FINDINGS: There are multiple levels of degenerative disc changes with narrowing of disc height. Cord terminates at the L1 level. Distal conus appears normal. There is a residual disc at S1-S2. L5-S1: Central broad-based disc herniation is present with mild anterior thecal sac contact. No AP sp inal canal stenosis is present. Severe bilateral foraminal stenosis is present. This may be greater on the left. L4-L5: Broad-based disc bulge is present with anterior thecal sac contact. Posterior lateral thecal s ac compression is present from ligamentum flavum laxity Severe foraminal stenosis is present bilater ally. L3-L4: There is loss of disc height to this level. Right paracentral disc herniation is present with mild to moderate anterior thecal sac compression. Correlate with right L4 radicular symptoms. Facet h ypertrophy is present with mild posterior lateral thecal sac compression No spinal canal stenosis. Moderate bilateral foraminal narrowing is present. L2-L3: There is right paracentral disc bulging with mild anterior thecal sac compression. Subligament ous disc extension may extend beyond the endplate of L3. No spinal canal stenosis. Mild foraminal narrowing is present bilaterally L1-L2: No significant disc bulge or disc herniation. Disc space narrowing is present. No spinal canal stenosis. No foraminal stenosis. T12-L1: No significant disc bulge or disc herniation. No spinal canal stenosis. No foraminal stenos is. IMPRESSION: 1. Multilevel severe foraminal stenosis. 2. Right paracentral disc herniation L3-4. Correlate with right L4 radicular symptoms. 3. L2-3 broad-based disc bulge may have subligamentous extension beyond the endplate of L3. 4. No suspicious changes on the noncontrast study of drop metastasis.
== END | disposition home or self-care (01) ==
LOC: RADMRIMAIN 16:01
PROVIDERS: ATTEND Psychiatry & Neurology Neurology
DX: M48.061 Spinal stenosis, lumbar region without neurogenic claudication (principal); M51.26 Other intervertebral disc displacement, lumbar region; C71.9 Malignant neoplasm of brain, unspecified
CPT/HCPCS: 72148

== ENCOUNTER → 2020-08-21 | Outpatient (CLI) | payer OTHER | END | disposition home or self-care (01) | LOC: RADXRMAIN 16:08 | PROVIDERS: ATTEND Psychiatry & Neurology Neurology | DX: Z53.9 Procedure and treatment not carried out, unspecified reason (principal) ==

== ENCOUNTER → 2020-09-11 | Outpatient (CLI) | payer OTHER ==
--- NOTE | 2020-09-11 17:01 | CTL ---
EXAMINATION TYPE: CT Low Dose Lung DATE OF EXAM ORDERED: 09/11/2020 HISTORY: . Lung cancer screening CT DLP: 51.[address] CTDI: 1.6 mGy Automated exposure control for dose reduction was used. SCREENING VISIT: COMPARISON: 04/11/2018 TECHNIQUE: Low dose computed tomography scan was performed through the chest at 1 mm thick sections a nd reconstructed images in the coronal plane at [address] DIAGNOSTIC QUALITY: Satisfactory FINDINGS: LUNG NODULES: None. Stable 4 x 3 mm nodule posterior lower lobe unchanged from prior exam. Stable 4 x 3 mm posterior superior left lower lobe nodule. Stable 3 mm superior segment posterior right lower lobe. 1 mm nodule right upper lobe subpleural location stable. Left apical nodule measuring 1 mm retrospectively stable 1 mm nodule lateral margin left upper lobe stable. There is a new 6 mm nodule in the anterior aspect of the left upper lobe image 85 LUNGS: Diffuse changes of COPD noted. No consolidative pneumonia or pleural effusion. No pneumothorax. Subse gmental changes of atelectasis noted. PLEURAL SPACE: Minimal pleural-based thickening with no evidence of pneumothorax, pleural effusion or pleural calcif ication. 3 vessel coronary artery calcification noted. Heart size at the upper limits of normal. Hypertrophic and degenerative changes of the spine. Chronic appearing rib cage deformity noted on the right relate d to previous trauma otherwise consider osteochondroma. Marked thyroid enlargement with suspected nod ule. IMPRESSION: 1. Multiple sub-5 mm nodules are seen which are stable. However, there is a new 6 mm nodule in the le ft upper lobe too small to characterize. 2. COPD. 3. Coronary artery calcification. 4. Marked enlargement of the left thyroid lobe with suspected thyroid nodule. FOLLOW UP CT CHEST RECOMMENDATION: Recommend follow-up in 6 months for new 6 mm nodule left upper lob e. CT LUNG RAD: Lung-Rad 3 Probably Benign
== END | disposition home or self-care (01) ==
LOC: RADCTMAIN 16:21
PROVIDERS: ATTEND Family Medicine
DX: Z12.2 Encounter for screening for malignant neoplasm of respiratory organs (principal); R91.8 Other nonspecific abnormal finding of lung field; J44.9 Chronic obstructive pulmonary disease, unspecified; I25.10 Atherosclerotic heart disease of native coronary artery without angina pectoris; F17.210 Nicotine dependence, cigarettes, uncomplicated

== ENCOUNTER → 2020-10-07 | Outpatient (CLI) | payer OTHER | END | disposition home or self-care (01) | LOC: LABWHC1 15:38 | PROVIDERS: ATTEND Nurse Practitioner Family | DX: Z20.828 Contact with and (suspected) exposure to other viral communicable diseases (principal) | CPT/HCPCS: U0003; C9803 ==

== ENCOUNTER → 2020-10-13 | Outpatient (CLI) | payer OTHER | END | disposition home or self-care (01) | LOC: LABWHC1 15:24 | PROVIDERS: ATTEND Family Medicine | DX: Z20.828 Contact with and (suspected) exposure to other viral communicable diseases (principal) | CPT/HCPCS: U0003; C9803 ==

== ENCOUNTER → 2020-12-03 | Outpatient (CLI) | payer OTHER ==
--- NOTE | 2020-12-04 07:05 | MR ---
EXAMINATION TYPE: MR brain wo/w con DATE OF EXAM: 12/03/2020 COMPARISON: Prior MRI brain August 05, 2020. HISTORY: History of malignant neoplasm of brain. TECHNIQUE: Multiplanar, multisequence images of the brain and brainstem is performed without and with IV contras t, utilizing 6 mL intravenous Gadavist . FINDINGS: Diffusion weighted images demonstrate no evidence of a recent infarct or other diffusion ab normality. There is persistent artifact from left temporal surgical change or craniotomy. Persistent vasogenic edema throughout the left temporal parietal region with ex vacuo dilatation of the left tem poral horn is present. Persistent area of heterogeneous enhancement lateral left temporal region on a xial image 33 for reference of slightly irregular borders corresponding to coronal image 53 measuring roughly 2.1 x 1.3 x 1.8 cm On current study is felt slightly larger in size versus most recent stud y. Adjacent area of cavity with rim enhancement is less well seen on current study. Patchy fluid sign al left mastoid air cells remains present axial image 6 presumed postsurgical. Midline structures redemonstrate normal morphology. The craniocervical junction appears within jesi l limits. Persistent background mild diffuse cerebral atrophy and chronic small vessel ischemic whyte es. Post contrast images demonstrate no new areas of suspicious enhancement. The dural venous sinuse s remain patent. The visualized sinuses are clear and the globes are intact. IMPRESSION: Enlarging area of enhancement at site of surgery from most recent MRI suggesting recurren t active neoplasm at this level. Short-term MRI follow-up is advised.
== END | disposition home or self-care (01) ==
LOC: RADMRIMAIN 15:46
PROVIDERS: ATTEND Radiology Radiation Oncology
DX: C71.2 Malignant neoplasm of temporal lobe (principal); R90.89 Other abnormal findings on diagnostic imaging of central nervous system; Z85.841 Personal history of malignant neoplasm of brain; Z98.890 Other specified postprocedural states
CPT/HCPCS: 70553; A9585

== ENCOUNTER → 2020-12-29 | Outpatient (CLI) | payer OTHER ==
[2020-12-29 16:49] LABS: Appearance,Urine Clear (Clear); Bilirubin,Urine Negative (Negative); Blood,Urine Negative (Negative); Color,Urine Yellow; Glucose,Urine (UA) 4+ (Negative); Ketones,Urine Negative (Negative); Leukocyte Esterase,Urine Negative (Negative); Nitrite,Urine Negative (Negative); Protein,Urine Negative (Negative); Urobilinogen,Urine <2.0 mg/dL (<2.0)
--- NOTE | 2020-12-29 19:35 | XR ---
EXAMINATION TYPE: XR chest 2V DATE OF EXAM: 12/29/2020 COMPARISON: 08/09/2018 HISTORY: Preop surgery TECHNIQUE: 2 views FINDINGS: Heart and mediastinum are normal. Lungs are clear of infiltrate. There is no heart failure. There is old healed fracture left clavicle. Costophrenic angles are clear. The bony thorax is intact . IMPRESSION: No active cardiopulmonary disease. No change.
[2020-12-29 22:38] LABS: Basophils # (A) 0.12 X 10*3/uL (0.00-0.10); Basophils % (A) 1.2 %; Eosinophils % (A) 1.9 %; HCT 48.4 % (39.6-50.0); HGB 16.3 g/dL (13.0-17.0); Lymphocytes # (A) 2.41 X 10*3/uL (0.90-5.00); Lymphocytes % (A) 23.2 %; MCH 28.8 pg (27.0-32.0); MCHC 33.7 g/dL (32.0-37.0); MCV 85.5 fL (80.0-97.0); Mean Platelet Volume 11.1 fL (9.5-12.2); Monocytes # (A) 0.89 X 10*3/uL (0.20-1.00); Monocytes % (A) 8.6 %; Neutrophils # (A) 6.71 X 10*3/uL (1.80-7.70); Neutrophils % (A) 64.7 %; Platelet Count 391 X 10*3/uL (140-440); RBC 5.66 X 10*6/uL (4.40-5.60); RDW 15.7 % (11.5-14.5); WBC 10.37 X 10*3/uL (4.50-10.00)
[2020-12-29 22:56] LABS: INR 0.89 (0.90-1.11); Prothrombin Time 9.8 sec (9.9-11.9)
== END | disposition home or self-care (01) ==
LOC: LABWHC1 16:05
PROVIDERS: ATTEND Neurological Surgery
DX: C71.9 Malignant neoplasm of brain, unspecified (principal)
CPT/HCPCS: 36415; 71046; 81003; 85025; 85610; 87070

== ENCOUNTER → 2021-03-16 | Outpatient (CLI) | payer OTHER ==
--- NOTE | 2021-03-17 08:14 | CTL ---
EXAMINATION TYPE: CT Low Dose Lung DATE OF EXAM ORDERED: 03/16/2021 HISTORY: Long-term tobacco use. Lung cancer screening CT DLP: 61.[address] CTDI: 1.8 mGy Automated exposure control for dose reduction was used. SCREENING VISIT: Second study after baseline COMPARISON: Prior studies 2019 and 2017 TECHNIQUE: Low dose computed tomography scan was performed through the chest at 1 mm thick sections a nd reconstructed images in the coronal plane at [address] DIAGNOSTIC QUALITY: Limited, but interpretable Motion artifact current study for reference image 97 upper to midlung level FINDINGS: LUNG NODULES: Present, detailed below: A 4 x 3 mm posterior right lower lobe nodule axial image 168 stable from prior CTs. A 3 mm superior posterior right lower lobe nodule axial image 95 likely stable. Increased motion rajwinder fact present current study. There is new 4.8 x 4.1 mm right upper lobe nodule laterally axial image 42. There is new 6.6 x 3.3 mm nodule just inferior and anterior to this axial image 50. There is new left apical 7.2 x 4.1 mm elongated nodule axial image 23. There is new 3.8 x 3.5 mm nodu le posterior just superior to this axial image 20. New 4.5 mm round nodule left upper lobe anteriorly on axial image 69. LUNGS: COPD: Severity: Mild to moderate Fibrosis: Severity: None Lymph nodes: No new greater than 1 cm Other findings: None RIGHT PLEURAL SPACE: Effusion: None Calcification: None Thickening: None Pneumothorax: None LEFT PLEURAL SPACE: Effusion: None Calcification: None Thickening: None Pneumothorax: None HEART: Heart Size: None Coronary calcification: Mild to moderate Pericardial effusion: Trace OTHER FINDINGS: Upper abdomen: None Bony thorax: Mild to moderate multilevel spurring redemonstrated Supraclavicular region: Stable large left thyroid nodule correlates with ultrasound August 10 suspicious nodule Other: None. IMPRESSION: There are several new bilateral upper lung subcentimeter nodules. CT LUNG RAD AND CT CHEST RECOMMENDATION: Lung-Rad 3 Probably Benign: 6 month follow-up LDCT. S Modifier (other clinically significant findings): S Suspicious left thyroid nodule, sampling advised if has not been performed based on August 10 ultrasound. Presence of new bilateral subcentimeter upper lung nodules is more concerning for metastatic disease versus primary lung neoplasm. Correlate clinically, further neoplastic workup advised.
== END | disposition home or self-care (01) ==
LOC: RADCTMAIN 16:29
PROVIDERS: ATTEND Family Medicine
DX: Z12.2 Encounter for screening for malignant neoplasm of respiratory organs (principal); R91.8 Other nonspecific abnormal finding of lung field; Z87.891 Personal history of nicotine dependence
CPT/HCPCS: 71271

== ENCOUNTER → 2021-03-19 | Outpatient (CLI) | payer OTHER ==
--- NOTE | 2021-03-19 20:35 | MR ---
EXAMINATION TYPE: MR brain wo/w con DATE OF EXAM: 03/19/2021 COMPARISON: Prior MR brain 12/03/2020 HISTORY: Glioblastoma resection x 2017 and Dec 2020, follow-up. TECHNIQUE: Multiplanar, multisequence images of the brain and brainstem is performed without and with IV contras t, utilizing 5.5 mL intravenous Gadavist . FINDINGS: Diffusion weighted images demonstrate no evidence of a recent infarct or other diffusion ab normality. Postop changes are again seen, localized extra-axial fluid collection along the left tempo ral region is again seen, fluid signal has progressed likely dissecting along the subcutaneous soft t issues overlying the left temporal region, T2 bright signal is lobular and measures approximately 4 c m in AP dimension by 13 mm in transverse dimension and appears to extend from the anterior margin of the subdural fluid collection, deep to the craniotomy flap, mixed signal is noted on inversion recove ry sequences which may be due to heterogeneity in fluid content, some enhancement is present inferior to the collection, coronal image #49. The fluid collection deep to the craniotomy flap has increased in size slightly in the interval, measures approximately 4 mm in thickness and extends the length of a flap approximately 5.4 cm in anterior to posterior dimension. Additionally, focal area of low sig nal on inversion recovery and T1-weighted sequences at the level of the left temporal lobe laterally, axial image #12, this is an interval finding, this likely represents some focal encephalomalacia sta tus post resection. There is some residual enhancement at the margin of the resection which is new extending circumferent ially around the cavity, largest area measures approximately 3.3 cm in AP dimension by 13 mm in trans verse dimension, axial image 44 x 2.4 cm in craniocaudal dimension, some linear areas of enhancement about the periphery of the surgical cavity extends inferiorly towards the more inferior temporal lobe , coronal image #62, axial image 34. There is local gliosis as on prior exam, the ex vacuo phenomenon of the left lateral ventricle has improved. Periventricular white matter signal intensity is increas ed on inversion recovery T2-weighted sequences as on prior. The ventricular system and cisternal spac es are normal in size and appearance. The brain volume is age appropriate. Midline structures demonstrate normal morphology. The craniocervical junction appears within normal limits. Post contrast images demonstrate no abnormal enhancement. The dural venous sinuses appear pa tent. The visualized sinuses are remarkable for mucoperiosteal thickening in the maxillary sinuses, e thmoid air cells and the globes are intact. Inflammatory changes are present within the left mastoid air cells, temporal bone as on prior IMPRESSION: Recurrent or residual disease at the site of the surgical bed. Some fluid likely dissects into the soft tissues as described extending from the surgical site, additional findings above
== END | disposition home or self-care (01) ==
LOC: RADMRIMAIN 16:29
PROVIDERS: ATTEND Internal Medicine Hematology & Oncology
DX: Z85.841 Personal history of malignant neoplasm of brain (principal); Z98.890 Other specified postprocedural states
CPT/HCPCS: 70553; A9585

== ENCOUNTER 2021-03-30 18:18 | Emergency (ER) | payer OTHER ==
[2021-03-30 18:23] VITALS: TEMP 98.1
[2021-03-30 19:39] LABS: Basophils # (A) 0.1 k/uL (0-0.2); Basophils % (A) 2 %; Eosinophils # (A) 0.5 k/uL (0-0.7); Eosinophils % (A) 6 %; HGB 16.1 gm/dL (13.0-17.5); Lymphocytes # (A) 2.5 k/uL (1.0-4.8); Lymphocytes % (A) 31 %; MCH 29.9 pg (25.0-35.0); MCV 85.6 fL (80.0-100.0); Mean Platelet Volume 7.2; Monocytes # (A) 0.7 k/uL (0-1.0); Monocytes % (A) 9 %; Neutrophils # (A) 4.2 k/uL (1.3-7.7); Neutrophils % (A) 51 %; Platelet Count 328 k/uL (150-450); RBC 5.37 m/uL (4.30-5.90); RDW 15.1 % (11.5-15.5); WBC 8.2 k/uL (3.8-10.6)
--- NOTE | 2021-03-30 19:48 | ED ---
General Adult HPI - General Chief complaint: Skin/Abscess/Foreign Body Stated complaint: post op swelling Time Seen by Provider: 03/30/21 18:30 Source: patient, RN notes reviewed, old records reviewed Mode of arrival: ambulatory Limitations: no limitations - History of Present Illness Initial comments: 65-year-old male presenting for evaluation of swelling in the left moravian. Patient denies significant pain. Denies fever. He is approximately 3 months postop left craniotomy with history of glioblastoma. He is currently on chemotherapy. He's had 2 previous craniotomies. He had noticed some swelling which is worsened over the past 24 hours. He had an MRI performed on March 19 which according to his was at bedside did show a fluid collection in the region of concern. No new focal numbness or weakness. He's had some baseline expressive aphasia which is unchanged. - Related Data Home Medications Medication Instructions Recorded Confirmed Ezetimibe [Zetia] 10 mg PO DAILY 07/28/15 03/30/21 Fluticasone/Salmeterol [Advair 1 puff INHALATION RT-BID 07/28/15 03/30/21 500-50 Diskus] Ibuprofen [Motrin] 800 mg PO Q8HR PRN 07/28/15 03/30/21 Omeprazole [PriLOSEC] 20 mg PO BID 07/28/15 03/30/21 Theophylline 24 Hour [Kelechi-24] 300 mg PO BID 07/28/15 03/30/21 Tiotropium [place] [Spiriva] 1 puff INHALATION RT-DAILY 07/28/15 03/30/21 lisinopriL [Zestril] 5 mg PO DAILY 07/28/15 03/30/21 metFORMIN HCL [Glucophage] 1,000 mg PO BID 07/28/15 03/30/21 Albuterol Nebulized [Ventolin 2.5 mg INHALATION RT-Q6H PRN 04/16/18 03/30/21 Nebulized] Empagliflozin [Jardiance] 25 mg PO DAILY 04/16/18 03/30/21 Gabapentin [Neurontin] 300 mg PO TID 04/16/18 03/30/21 Tamsulosin [Flomax] 0.4 mg PO DAILY 04/16/18 03/30/21 sitaGLIPtin PHOSPHATE [Januvia] 100 mg PO DAILY 04/16/18 03/30/21 Albuterol Sulfate [Ventolin HFA] 2 puff INHALATION RT-Q6H PRN 03/30/21 03/30/21 Cholecalciferol (Vitamin D3) 125 mcg PO DAILY 03/30/21 03/30/21 [Vitamin D3 (5000 Iu)] Docusate [Colace] 100 mg PO MOWEFR 03/30/21 03/30/21 Famotidine 40 mg PO DAILY 03/30/21 03/30/21 Insulin NPH Human Isophane 8 units SQ DAILY 03/30/21 03/30/21 [NovoLIN N] Nicotine 21Mg/24Hr Patch [Habitrol] 1 patch TRANSDERM DAILY PRN 03/30/21 03/30/21 Ondansetron Odt [Zofran Odt] 4 mg PO Q6H PRN 03/30/21 03/30/21 Sulfamethox-Tmp 800-160Mg [Bactrim 1 tab PO MOWEFR 03/30/21 03/30/21 DS 800-160 mg] Temozolomide [Temodar] 250 mg PO DIRECTED 03/30/21 03/30/21 Vitamin B Complex 1 cap PO DAILY 03/30/21 03/30/21 dexAMETHasone [Dexamethasone] 1 mg PO BID 03/30/21 03/30/21 Allergies Allergy/AdvReac Type Severity Reaction Status Date / Time Aaoetop-Zut-Udo Reductase AdvReac JOINT PAIN Verified 03/30/21 18:55 Inhibitor GAIN LAUNDRY PODS Allergy Rash/Hives Uncoded 03/30/21 18:23 Review of Systems ROS Statement: Those systems with pertinent positive or pertinent negative responses have been documented in the HPI. ROS Other: All systems not noted in ROS Statement are negative. Past Medical History Past Medical History: COPD, Diabetes Mellitus, GERD/Reflux, GI Bleed, Hyperlipidemia, Hypertension, Musculoskeletal Disorder, Osteoarthritis (OA) Additional Past Medical History / Comment(s): RT SHOULDER ARTHRITIS & SCIATICA @ TIMES. NT IN TOES OCC. STATES BRUISES EASILY. HX THROWING UP BLOOD, PT HAD BEEN DRINKING ALCOHOL. History of Any Multi-Drug Resistant Organisms: None Reported Additional Past Surgical History / Comment(s): EGD & COLONOSCOPY. DENTAL PROC, craniotomy x 2 Past Anesthesia/Blood Transfusion Reactions: Previous Problems w/ Anesthesia Additional Past Anesthesia/Blood Transfusion Reaction / Comment(s): "AWOKE THRASHING, PANICKY." Past Psychological History: Anxiety Smoking Status: Never smoker Past Alcohol Use History: None Reported Past Drug Use History: None Reported - Past Family History Sister(s) Family Medical History: Cancer Mother Family Medical History: Cancer, Congestive Heart Failure (CHF), COPD, Diabetes Mellitus Additional Family Medical History / Comment(s): BREAST CA- @ AGE 82-CHF Father Family Medical History: Dementia Additional Family Medical History / Comment(s): HAD A HEART CATH WITH STENT General Exam Limitations: no limitations General appearance: alert, in no apparent distress Head exam: Present: atraumatic, other (Left craniotomy incision is well-healed. There is soft tissue swelling which is soft, not indurated, fluctuant. Not erythematous.) ENT exam: Present: normal exam Neck exam: Present: normal inspection. Absent: tenderness, meningismus Respiratory exam: Present: normal lung sounds bilaterally. Absent: respiratory distress Cardiovascular Exam: Present: regular rate, normal rhythm GI/Abdominal exam: Present: soft. Absent: distended, tenderness, guarding Extremities exam: Present: normal inspection, normal capillary refill. Absent: pedal edema, calf tenderness Neurological exam: Present: alert, oriented X3. Absent: motor sensory deficit (Good strength throughout, mild aphasia) Psychiatric exam: Present: normal affect, normal mood Skin exam: Present: warm, dry, intact, other (Soft tissue swelling left temporal). Absent: cyanosis, diaphoretic Course Vital Signs 03/30/21 18:20 Temperature 98.1 F Pulse Rate 92 Respiratory 20 Rate Blood Pressure 146/85 O2 Sat by Pulse 96 Oximetry - Reevaluation(s) Reevaluation #1: 03/30/21 20:11 We did attempt on multiple occasions to page the patient's neurosurgeon out of [facility] Dr. Biswas, no callback as of 2010 Medical Decision Making - Medical Decision Making 65-year-old male with craniotomy for glioblastoma in December of this year approximate 3 months ago presenting with swelling in the left temporal region. Patient has no new neuro findings. He is hemodynamically stable, afebrile. He has a normal CBC with no leukocytosis, normal CMP. I did attempt to contact his neurosurgeon which was unsuccessful. I was able to discuss the MRI imaging with the radiologist. And repeat CT was performed which showed a fluid collection, likely seroma, there is no intracranial hemorrhage. There is postsurgical changes. I feel this patient is stable for discharge and close outpatient follow-up. They're provided with a disc and will call the neurosurgeon tomorrow morning. Return parameters discussed. - Lab Data Result diagrams: 03/30/21 19:24 03/30/21 19:24 Lab Results 03/30/21 03/30/21 03/30/21 Range/Units 19:24 19:24 19:24 WBC 8.2 (3.8-10.6) k/uL RBC 5.37 (4.30-5.90) m/uL Hgb 16.1 (13.0-17.5) gm/dL Hct 46.0 (39.0-53.0) % MCV 85.6 (80.0-100.0) fL MCH 29.9 (25.0-35.0) pg MCHC 35.0 (31.0-37.0) g/dL RDW 15.1 (11.5-15.5) % Plt Count 328 (150-450) k/uL MPV 7.2 Neutrophils % 51 % Lymphocytes % 31 % Monocytes % 9 % Eosinophils % 6 % Basophils % 2 % Neutrophils # 4.2 (1.3-7.7) k/uL Lymphocytes # 2.5 (1.0-4.8) k/uL Monocytes # 0.7 (0-1.0) k/uL Eosinophils # 0.5 (0-0.7) k/uL Basophils # 0.1 (0-0.2) k/uL PT 9.5 (9.0-12.0) sec INR 0.9 (<1.2) APTT 21.7 L (22.0-30.0) sec Sodium 140 (137-145) mmol/L Potassium 4.7 (3.5-5.1) mmol/L Chloride 104 (98-107) mmol/L Carbon Dioxide 26 (22-30) mmol/L Anion Gap 10 mmol/L BUN 23 H (9-20) mg/dL Creatinine 0.77 (0.66-1.25) mg/dL Est GFR (CKD-EPI)AfAm >90 (>60 ml/min/1.73 sqM) Est GFR (CKD-EPI)NonAf >90 (>60 ml/min/1.73 sqM) Glucose 105 H (74-99) mg/dL Calcium 9.8 (8.4-10.2) mg/dL Total Bilirubin 0.4 (0.2-1.3) mg/dL AST 18 (17-59) U/L ALT 17 (4-49) U/L Alkaline Phosphatase 53 (38-126) U/L Total Protein 6.6 (6.3-8.2) g/dL Albumin 4.3 (3.5-5.0) g/dL Disposition Clinical Impression: History of craniotomy, Seroma after procedure Disposition: HOME SELF-CARE Instructions (If sedation given, give patient instructions): Seroma (DC) Additional Instructions: Please follow up with your neurosurgeon tomorrow morning. Please return with any worsening or changing symptoms including signs of infection. Is patient prescribed a controlled substance at d/c from ED?: No Referrals: Smith Cheatham III, MD [Primary Care Provider] - 1-2 days Time of Disposition: 20:24
[2021-03-30 19:55] LABS: ALT 17 U/L (4-49); AST 18 U/L (17-59); African American GFR (CKD) >90 (>60 ml/min/1.73 sqM); Albumin 4.3 g/dL (3.5-5.0); Alkaline Phosphatase 53 U/L (38-126); Anion Gap 10 mmol/L; Blood Urea Nitrogen 23 mg/dL (9-20); Calcium 9.8 mg/dL (8.4-10.2); Carbon Dioxide 26 mmol/L (22-30); Chloride 104 mmol/L (98-107); Glucose 105 mg/dL (74-99); Non-African American GFR(CKD) >90 (>60 ml/min/1.73 sqM); Potassium 4.7 mmol/L (3.5-5.1); Sodium 140 mmol/L (137-145); Total Bilirubin 0.4 mg/dL (0.2-1.3); Total Protein 6.6 g/dL (6.3-8.2)
[2021-03-30 20:00] LABS: INR 0.9 (<1.2); Prothrombin Time 9.5 sec (9.0-12.0)
[2021-03-30 20:01] LABS: Partial Thromboplastin Time 21.7 sec (22.0-30.0)
--- NOTE | 2021-03-30 20:01 | CT ---
EXAM: CT brain wo con CLINICAL HISTORY: Left temporal swelling status post craniotomy. COMPARISON: MR 03/19/2021. TECHNIQUE: Contiguous axial noncontrast images of the brain were obtained. Coronal and sagittal refor mats were generated and reviewed. Automated dose control was used for this exam. FINDINGS: There is redemonstration of left scalp swelling with 4.6 x 1.7 cm mildly hypoattenuating fluid collec tion. Left parietotemporal craniotomy seen. There is a subcentimeter dystrophic calcification within the left temporal lobe. Left temporal encephalomalacia with dilatation of the temporal horn is seen. There is no acute intracranial hemorrhage or midline shift. The paranasal sinuses are clear. The mast oid air cells are clear. No acute osseous abnormality. IMPRESSION: Redemonstrated left scalp swelling with associated fluid collection, which may represent postsurgical collection/seroma. Other etiology not excluded. Left temporal lobe encephalomalacia with dystrophic calcification. Known abnormal enhancement within the surgical bed is better depicted on the prior MRI.
[2021-03-30 20:38] VITALS: BP 105/70; PULSE 82; RESP 18
== END 2021-03-30 20:38 | disposition home or self-care (01) ==
LOC: EC 18:18
DX: G97.63 Postprocedural seroma of a nervous system organ or structure following a nervous system procedure (principal); R22.0 Localized swelling, mass and lump, head; E11.9 Type 2 diabetes mellitus without complications; E78.5 Hyperlipidemia, unspecified; I10 Essential (primary) hypertension; J44.9 Chronic obstructive pulmonary disease, unspecified; K21.9 Gastro-esophageal reflux disease without esophagitis; M19.011 Primary osteoarthritis, right shoulder; Z79.84 Long term (current) use of oral hypoglycemic drugs; Z98.890 Other specified postprocedural states
CPT/HCPCS: 36415; 70450; 80053; 83605; 85025; 85610; 85730; 99284

== ENCOUNTER → 2021-05-17 | Outpatient (CLI) | payer OTHER ==
[2021-05-17 15:48] LABS: African American GFR (CKD) >90 (>60 ml/min/1.73 sqM); Blood Urea Nitrogen 23 mg/dL (9-20); Non-African American GFR(CKD) >90 (>60 ml/min/1.73 sqM)
--- NOTE | 2021-05-19 08:32 | CT ---
EXAMINATION TYPE: CT chest w con DATE OF EXAM: 05/17/2021 COMPARISON: 03/16/2021, 09/11/2020 HISTORY: 65-year-old male R91.1, Lung nodule TECHNIQUE: Contiguous axial scanning of the chest after the administration of 100 mL of Isovue 300. Coronal/sagittal reconstructions performed. CT DLP: 287mGycm. Automatic exposure control utilized for a dose reduction. FINDINGS: Redemonstrated large left thyroid lobe nodule measuring approximately 2.9 cm, not significantly whyte ed. Correlate with prior workup. Heart normal size without pericardial effusion. Mild atherosclerotic arch calcifications within conventional arch vessel branching anatomy. Mild ecta miguel lower descending thoracic aorta to 2.7 cm. No thoracic lymphadenopathy by CT size criteria. Tiny 2 mm left apical pulmonary nodule, axial image 6, decreased in size. 5 mm anterior left upper lobe pulmonary nodule, axial image 14, unchanged. Tiny 3 mm anterior left midlung pulmonary nodule, axial image 23, unchanged.. 4 mm lateral right upper lobe pulmonary nodule, axial image 9, smaller versus 5 mm, previously. At least one additional right upper lobe pulmonary nodule seen previously has resolved. No new or enlarging pulmonary nodules. Mild strandy atelectasis in the lower lungs. No consolidation or pleural effusion. Visualized upper abdomen shows no gross abnormality. 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 Mo derate multilevel degenerative disc disease with multiple endplate Schmorl's nodes. IMPRESSION: 1. Bilateral pulmonary nodules are either stable back to 09/11/2020 or decreasing in size as compared to 03/16/2021. For example, the left apical pulmonary nodule previously measuring 7 mm is now punctat e at 2 mm. Previous 5 mm right upper lobe pulmonary nodule now measures 4 mm and another nodule in th e right upper lobe has entirely resolved. No new or enlarging pulmonary nodules. Additional follow-up as clinically indicated. 2. Redemonstrated large left thyroid lobe nodule at 2.9 cm, not significantly changed. Correlate with prior workup.
== END | disposition home or self-care (01) ==
LOC: RADCTMAIN 14:32
PROVIDERS: ATTEND Internal Medicine Hematology & Oncology
DX: R91.8 Other nonspecific abnormal finding of lung field (principal); E04.1 Nontoxic single thyroid nodule
CPT/HCPCS: 71260; 82565; 84520

== ENCOUNTER → 2021-05-19 | Outpatient (CLI) | payer OTHER ==
--- NOTE | 2021-05-20 17:06 | MR ---
EXAMINATION TYPE: MR brain wo/w con DATE OF EXAM: 05/19/2021 COMPARISON: Prior brain MRI 03/19/2021 HISTORY: Glioblastoma, craniotomy [id number], forgetfulness, history of left and right sided weakness. TECHNIQUE: Multiplanar, multisequence images of the brain and brainstem is performed without and with IV contras t, utilizing 5.5 mL intravenous Gadavist . FINDINGS: Diffusion weighted images demonstrate no evidence of a recent infarct or other diffusion ab normality. The fluid collections noted along the right lateral calvarium have changed in configuratio n somewhat, crescentic areas persist in a similar distribution, within the soft tissues the collectio n is somewhat more elongate now measuring 5.1 cm rather than 4.1 cm by approximately 15 mm as compare d to 13 mm, the collection along the region adjacent to the left lateral ventricle now measures 2.1 x 1.2 cm where as on prior measured 2.7 x 1.7 cm. There is however the area of abnormal enhancement al trena this region which measures approximately 3.2 cm in greatest AP dimension by 1.8 cm in transverse dimension by 2.5 cm in cephalad to caudal dimension with some additional speckled foci of enhancement posterior to this level which was not seen on prior exam. No additional significant interval change. IMPRESSION: There is been some slight interval progression in the abnormal enhancement suggestive of tumor progression. Midline structures demonstrate normal morphology. The craniocervical junction appears within normal limits. Post contrast images demonstrate no abnormal enhancement. The dural venous sinuses appear pa tent. The visualized sinuses are clear and the globes are intact. IMPRESSION:
== END | disposition home or self-care (01) ==
LOC: RADMRIMAIN 15:41
PROVIDERS: ATTEND Internal Medicine Hematology & Oncology
DX: C71.9 Malignant neoplasm of brain, unspecified (principal)
CPT/HCPCS: 70553; A9585